=== PATIENT | female | born 1945 | race Caucasian/White ===

== ENCOUNTER 2021-06-27 14:22 | Inpatient (IN) ==
[2021-07-12] MEDS ORDERED: GLUCAGON 1 MG VIAL IM PRN (12:11)
[2021-07-12] MEDS ORDERED: DEXTROSE 50% 25 GM/50 ML VIAL IV PRN (12:11)
[2021-07-12] MEDS ORDERED: CLORAZEPATE 3.75 MG TABLET PO PRN (12:19)
[2021-07-12] MEDS ORDERED: NITROGLYCERIN SL 0.4 MG TABLET SL PRN (12:19)
[2021-07-12] MEDS ORDERED: MORPHINE 2 MG/1 ML SYRINGE IV PRN (12:19)
[2021-07-12] MEDS ORDERED: SODIUM CHLORIDE 0.9% 1,000 ML IV SCH (12:30)
[2021-07-12 15:01] LABS: Basophils % 0.4 % (0.0-0.8); Eosinophils # 0.3 10*3/uL (0.0-0.87); Eosinophils % 3.6 % (0.00-10.9); Hematocrit 35.3 VOL% (35.7-47.0); Immature Granulocytes % 0.6 %; Immature Granulocytes Absolute 0.05 #; Lymphocytes # 2.3 10*3/uL (1.4-4.0); Lymphocytes % 29.2 % (21.3-54.2); Mean Corpuscular HGB Conc 31.2 GM/DL (32-36); Mean Corpuscular Volume 82.7 FL (87-102); Mean Platelet Volume 9.5 FL (9.6-12.0); Monocytes % 5.6 % (1.7-12.7); Neutrophils % 60.6 % (38.7-73.9); Platelet Count 297 T/CUMM (130-400); Red Blood Count 4.27 MC/CUMM (3.8-5.5)
[2021-07-12 15:24] LABS: Albumin 3.4 G/DL (3.4-5.0); Bilirubin,Total 0.4 MG/DL (0.20-1.00); Osmolality,Calculated 276.1 MOS/KG (273-304); Potassium 3.8 MMOL/L (3.5-5.1); Total Protein 7.2 G/DL (6.4-8.2)
[2021-07-12] MEDS: CHLORHEXIDINE 4% SOLN 118 ML BOTTLE TOP SCH ×2 (17:36→21:41)
[2021-07-12 18:08] LABS: ABG Base Excess -1.1 MMOL/L (-2.5-2.5); ABG HCO3 23.5 MMOL/L (20-26); ABG Oxygen Saturation 97.4 % (95-100); ABG PCO2 36.6 MM HG (35-48); ABG PH 7.409 (7.35-7.45); ABG PO2 94.8 MM HG (80-95); ABG TCO2 20.8 MMOL/L (23-27)
[2021-07-12] MEDS: INSULIN REGULAR 100 UNIT/ML SUBCUT SCH ×2 (18:27→21:42)
[2021-07-12] MEDS: CHLORHEXIDINE 0.12% ORAL RINSE 60 ML BOTTLE SWISH/SPIT SCH (22:49)
[2021-07-13] MEDS ORDERED: VANCOMYCIN 1,000 MG VIAL ONE ×2 (04:58→11:53)
[2021-07-13] MEDS ORDERED: PAPAVERINE 60 MG/2 ML VIAL ONE (04:58)
[2021-07-13] MEDS ORDERED: VANCOMYCIN 500 MG VIAL ONE (04:58)
[2021-07-13] MEDS ORDERED: CEFUROXIME INJ 1,500 MG in SODIUM CHLORIDE 0.9% 100 ML IV ONE (05:00)
[2021-07-13] MEDS ORDERED: SODIUM CHLORIDE 0.9% 1,000 ML IV ONE (05:49)
[2021-07-13] MEDS ORDERED: LIDOCAINE 2% 5 ML VIAL ONE ×2 (05:49→10:09)
[2021-07-13] MEDS ORDERED: LACTATED RINGERS 1,000 ML IV ONE (05:49)
[2021-07-13] MEDS ORDERED: VECURONIUM 10 MG VIAL IV ONE ×2 (05:49→12:00)
[2021-07-13] MEDS ORDERED: SEVOFLURANE 1 UNIT/15 MINUTE INH ONE ×3 (05:49→11:12)
[2021-07-13] MEDS ORDERED: ETOMIDATE 40 MG/20 ML VIAL IV ONE (05:49)
[2021-07-13] MEDS ORDERED: AMINOCAPROIC ACID 5,000 MG/20 ML VIAL ONE (05:49)
[2021-07-13] MEDS ORDERED: NITROGLYCERIN DRIP 0 MG/0 ML BOTTLE IV ONE (05:49)
[2021-07-13] MEDS ORDERED: ePHEDrine 50 MG/ML VIAL ONE (05:49)
[2021-07-13] MEDS ORDERED: MINERAL OIL/PETROLATUM OPH OINT 3.5 GM TUBE ONE (05:49)
[2021-07-13] MEDS ORDERED: MIDAZOLAM 10 MG/2 ML VIAL ONE ×5 (05:49→12:00)
[2021-07-13] MEDS ORDERED: CALCIUM CHLORIDE 1,000 MG/10 ML VIAL IV ONE ×2 (05:49→10:28)
[2021-07-13] MEDS ORDERED: SODIUM CHLORIDE 0.9% 250 ML IV ONE (05:49)
[2021-07-13] MEDS ORDERED: HEPARIN/NACL 0.9% 2 UNITS/ML 1,000 UNIT/500 ML BAG IV ONE (05:49)
[2021-07-13] MEDS ORDERED: PHENYLEPHRINE DRIP 20 MG/250 ML PREMIX IV ONE (05:49)
[2021-07-13] MEDS ORDERED: SUFentanil 250 MCG/5 ML AMP ONE (05:50)
[2021-07-13] MEDS ORDERED: FAMOTIDINE 20 MG TABLET PO ONE (06:00)
[2021-07-13] MEDS ORDERED: DIAZEPAM 5 MG TABLET PO ONE (06:00)
[2021-07-13] MEDS ORDERED: SODIUM BICARBONATE 50 MEQ/50 ML VIAL IV ONE ×2 (07:40→10:10)
[2021-07-13] MEDS ORDERED: CALCIUM CHLORIDE 1,000 MG/10 ML SYRINGE IV ONE (07:41)
[2021-07-13] MEDS ORDERED: NITROPRUSSIDE 50 MG/2 ML VIAL ONE (07:41)
[2021-07-13] MEDS ORDERED: PHENYLEPHRINE DRIP 40 MG/250 ML PREMIX IV ONE (07:41)
[2021-07-13 07:54] LABS: ABG Base Excess -0.3 MMOL/L (-2.5-2.5); ABG HCO3 24.2 MMOL/L (20-26); ABG PCO2 42.7 MM HG (35-48); ABG PH 7.374 (7.35-7.45); ABG TCO2 22.8 MMOL/L (23-27); Glucose Heart Surgery 180 MG/DL (74-106); Hematocrit Heart Surgery 29.8 PERCENT (37-47); Hemoglobin Heart Surgery 9.6 G/DL (12.0-16.0); Ionized Calcium Arterial 1.16 MMOL/L (1.21-1.46); PCO2 Patient Temp Arterial 42.7 MMHG; PH Patient Temp Arterial 7.374; Patient Temperature 37 CELCIUS; Potassium Heart/CVR 3.8 MMOL/L (3.5-5.1); Sodium Heart/CVR 142 MMOL/L (135-145)
[2021-07-13 08:00] LABS: Bacteria,Urine Occasional /HPF (Few); Bilirubin,Urine Negative (Negative); Blood, Urine Negative (Negative); Glucose,Urine (UA) Negative (Negative); Ketones,Urine Negative (Negative); Nitrite,Urine Positive (Negative); Protein,Urine Negative; RBC,Urine 4 /HPF (0-4); Urine Appearance Slightly Hazy (Clear); Urine Color Yellow (Yellow); Urine Urobilinogen < 2.0 EU/DL (0.2-1.0)
[2021-07-13] MEDS ORDERED: FAMOTIDINE 20 MG/2 ML VIAL IV ONE (08:24)
[2021-07-13] MEDS ORDERED: diphenhydrAMINE 50 MG/1 ML VIAL ONE (08:24)
[2021-07-13 09:15] LABS: Hematocrit Heart Surgery 19.5 PERCENT (37-47); PCO2 Patient Temp Venous 40.4 MM HG; PH Patient Temp Venous 7.406; PO2 Patient Temp Venous 33.8 MM HG; VBG Base Excess 0.9 MEQ/L (0-4); VBG HCO3 24.9 MEQ/L (24-28); VBG Oxygen Saturation 66.5 %; VBG PCO2 44.5 MMHG (41-51); VBG PH 7.377; VBG PO2 38.8 MMHG (17-40); VBG Total CO2 25.1 MMOL/L
[2021-07-13 09:16] LABS: Hemoglobin Heart Surgery 6.2 G/DL (12.0-16.0)
[2021-07-13 09:52] LABS: Hematocrit Heart Surgery 26.5 PERCENT (37-47); Hemoglobin Heart Surgery 8.5 G/DL (12.0-16.0); PCO2 Patient Temp Venous 42.7 MM HG; PH Patient Temp Venous 7.332; PO2 Patient Temp Venous 32.6 MM HG; VBG HCO3 21.4 MEQ/L (24-28); VBG Oxygen Saturation 65.5 %; VBG PCO2 47.1 MMHG (41-51); VBG PH 7.304; VBG PO2 37.5 MMHG (17-40)
[2021-07-13] MEDS ORDERED: methylPREDNISolone SOD SUC 1,000 MG/8 ML VIAL ONE (10:09)
[2021-07-13] MEDS ORDERED: ALBUMIN 25% 25 GM/100 ML VIAL IV ONE (10:09)
[2021-07-13] MEDS ORDERED: MAGNESIUM SULFATE 5 GM/10 ML VIAL IV ONE (10:09)
[2021-07-13] MEDS ORDERED: HEPARIN 10,000 UNIT/10 ML VIAL ONE (10:10)
[2021-07-13] MEDS ORDERED: FUROSEMIDE 20 MG/2 ML VIAL ONE (10:10)
[2021-07-13] MEDS ORDERED: MANNITOL 100 GM/500 ML BAG IV ONE (10:10)
[2021-07-13] MEDS ORDERED: PROTAMINE SULFATE 250 MG/25 ML VIAL IV ONE (10:10)
[2021-07-13] MEDS ORDERED: DEXTROSE 5% KCL 20 MEQ 20 MEQ/1,000 ML BAG IV ONE (10:10)
[2021-07-13] MEDS ORDERED: PROTAMINE SULFATE 50 MG/5 ML VIAL IV ONE ×2 (10:10→11:12)
[2021-07-13 10:17] LABS: ABG Base Excess 4.1 MMOL/L (-2.5-2.5); ABG HCO3 28.2 MMOL/L (20-26); ABG PCO2 44.4 MM HG (35-48); ABG PH 7.423 (7.35-7.45); ABG TCO2 26.9 MMOL/L (23-27); Glucose Heart Surgery 313 MG/DL (74-106); Hematocrit Heart Surgery 26.2 PERCENT (37-47); Hemoglobin Heart Surgery 8.4 G/DL (12.0-16.0); Ionized Calcium Arterial 1.07 MMOL/L (1.21-1.46); PCO2 Patient Temp Arterial 44.4 MMHG; PH Patient Temp Arterial 7.423; Patient Temperature 37 CELCIUS; Potassium Heart/CVR 3.9 MMOL/L (3.5-5.1); Sodium Heart/CVR 138 MMOL/L (135-145)
[2021-07-13] MEDS ORDERED: AMIODARONE 150 MG/3 ML VIAL ONE (10:18)
[2021-07-13] MEDS ORDERED: VECURONIUM 10 MG VIAL IV PRN ×2 (11:00)
[2021-07-13] MEDS ORDERED: MAGNESIUM SULF RIDER 4 GM/100 ML PREMIX IV PRN (11:00)
[2021-07-13] MEDS ORDERED: ONDANSETRON 4 MG/2 ML VIAL IV PRN (11:00)
[2021-07-13] MEDS ORDERED: INSULIN REGULAR 100 UNIT/ML IV ONE (11:00)
[2021-07-13] MEDS ORDERED: INSULIN REGULAR 100 UNIT/ML IV PRN (11:00)
[2021-07-13] MEDS ORDERED: DEXTROSE 50% 25 GM/50 ML VIAL IV PRN ×2 (11:00)
[2021-07-13] MEDS ORDERED: CALCIUM CHLORIDE 1,000 MG/10 ML SYRINGE IV PRN (11:00)
[2021-07-13] MEDS ORDERED: PHENYLEPHRINE DRIP 40 MG/250 ML PREMIX IV PRN (11:00)
[2021-07-13] MEDS ORDERED: ACETAMINOPHEN 650 MG SUPP RECTAL PRN (11:00)
[2021-07-13] MEDS ORDERED: CHLORHEXIDINE 4% SOLN 118 ML BOTTLE TOP PRN (11:00)
[2021-07-13] MEDS ORDERED: NITROPRUSSIDE 100 MG in DEXTROSE 5% 250 ML IV PRN (11:00)
[2021-07-13] MEDS ORDERED: SODIUM CHLORIDE 0.45% 1,000 ML IV SCH ×2 (11:00)
[2021-07-13] MEDS ORDERED: MIDAZOLAM 10 MG/2 ML VIAL IV PRN (11:00)
[2021-07-13] MEDS ORDERED: INSULIN REGULAR DRIP 100 ML IV SCH (11:00)
[2021-07-13] MEDS ORDERED: MIDAZOLAM 2 MG/2 ML VIAL IV PRN (11:00)
[2021-07-13] MEDS ORDERED: ALBUMIN 5% 12.5 GM/250 ML VIAL IV PRN (11:00)
[2021-07-13] MEDS ORDERED: MAGNESIUM SULF RIDER 2 GM/50 ML PREMIX IV PRN (11:00)
[2021-07-13] MEDS: LACTATED RINGERS 250 ML IV PRN ×7 (11:18→16:44)
[2021-07-13 11:32] LABS: Basophils % 0.3 % (0.0-0.8); Eosinophils # 0.2 10*3/uL (0.0-0.87); Eosinophils % 1.7 % (0.00-10.9); Hematocrit 29.7 VOL% (35.7-47.0); Hemoglobin 9.4 GM/DL (12.0-16.0); Immature Granulocytes % 0.9 %; Immature Granulocytes Absolute 0.09 #; Lymphocytes # 2.5 10*3/uL (1.4-4.0); Lymphocytes % 24.1 % (21.3-54.2); Mean Corpuscular HGB Conc 31.6 GM/DL (32-36); Mean Corpuscular Volume 83.7 FL (87-102); Mean Platelet Volume 9.7 FL (9.6-12.0); Monocytes % 4.9 % (1.7-12.7); Neutrophils % 68.1 % (38.7-73.9); Platelet Count 196 T/CUMM (130-400); Red Blood Count 3.55 MC/CUMM (3.8-5.5); Red Cell Distribution Width 15.2 % (9.3-17.3); White Blood Count 10.3 T/CUMM (4-12)
[2021-07-13 11:33] LABS: ABG Base Excess 3.8 MMOL/L (-2.5-2.5); ABG HCO3 27.8 MMOL/L (20-26); ABG Oxygen Saturation 99.8 % (95-100); ABG PCO2 37.6 MM HG (35-48); ABG PH 7.472 (7.35-7.45); Glucose Heart Surgery 289 MG/DL (74-106); Hematocrit Heart Surgery 29.7 PERCENT (37-47); Hemoglobin Heart Surgery 9.6 G/DL (12.0-16.0); Potassium Heart/CVR 4.1 MMOL/L (3.5-5.1)
[2021-07-13 11:41] LABS: INR 1.2; PT Patient Result 13.3 SECS (10.5-12.0)
[2021-07-13] MEDS ORDERED: THROMBIN TOPICAL (RECOMBINANT) 5,000 UNIT VIAL TOP ONE (12:39)
[2021-07-13 12:45] LABS: ABG Base Excess 0.4 MMOL/L (-2.5-2.5); ABG HCO3 24.8 MMOL/L (20-26); ABG PCO2 39.5 MM HG (35-48); ABG PH 7.409 (7.35-7.45); ABG TCO2 22.3 MMOL/L (23-27); Glucose Heart Surgery 305 MG/DL (74-106); Hematocrit Heart Surgery 34.4 PERCENT (37-47); Hemoglobin Heart Surgery 11.1 G/DL (12.0-16.0); Ionized Calcium Arterial 1.19 MMOL/L (1.21-1.46); PCO2 Patient Temp Arterial 39.5 MMHG; PH Patient Temp Arterial 7.409; Patient Temperature 37 CELCIUS; Potassium Heart/CVR 3.6 MMOL/L (3.5-5.1); Sodium Heart/CVR 142 MMOL/L (135-145)
[2021-07-13 12:46] LABS: CKMB % 4.9 %
[2021-07-13 12:49] LABS: High Sensitive Troponin I* 1953.6 ng/L (0-54)
[2021-07-13] MEDS: CHLORHEXIDINE 4% SOLN 118 ML BOTTLE TOP SCH (13:00)
[2021-07-13] MEDS ORDERED: SODIUM CHLORIDE 0.9% 100 ML IV ONE (13:03)
[2021-07-13] MEDS: INSULIN REGULAR 100 UNIT/ML SUBCUT SCH (13:09)
[2021-07-13] MEDS: CHLORHEXIDINE 0.12% ORAL RINSE 60 ML BOTTLE SWISH/SPIT SCH (13:10)
[2021-07-13 13:16] LABS: Albumin 3.3 G/DL (3.4-5.0); Bilirubin,Total 1.1 MG/DL (0.20-1.00); Calcium 9.8 MG/DL (8.5-10.1); Osmolality,Calculated 287.5 MOS/KG (273-304); Potassium 4.1 MMOL/L (3.5-5.1); Total Protein 6.4 G/DL (6.4-8.2)
[2021-07-13 14:32] LABS: ABG Base Excess 1.7 MMOL/L (-2.5-2.5); ABG HCO3 25.9 MMOL/L (20-26); ABG Oxygen Saturation 99.2 % (95-100); ABG PCO2 36.5 MM HG (35-48); ABG PH 7.452 (7.35-7.45); ABG TCO2 22.8 MMOL/L (23-27); Glucose Heart Surgery 271 MG/DL (74-106); Hematocrit Heart Surgery 33.1 PERCENT (37-47); Hemoglobin Heart Surgery 10.7 G/DL (12.0-16.0); Potassium Heart/CVR 3.4 MMOL/L (3.5-5.1)
[2021-07-13] MEDS: POTASSIUM CHLORIDE RIDER 20 MEQ/100 ML PREMIX IV PRN ×3 (14:42→17:23)
[2021-07-13] MEDS ORDERED: MORPHINE 2 MG/1 ML SYRINGE ONE (15:52)
[2021-07-13] MEDS: MORPHINE 10 MG/1 ML VIAL IV PRN ×2 (15:57→19:25)
[2021-07-13 17:17] LABS: ABG Base Excess 0.1 MMOL/L (-2.5-2.5); ABG HCO3 24.5 MMOL/L (20-26); ABG Oxygen Saturation 97.4 % (95-100); ABG PCO2 42.4 MM HG (35-48); ABG PH 7.383 (7.35-7.45); ABG PO2 95.7 MM HG (80-95); Glucose Heart Surgery 215 MG/DL (74-106); Hematocrit Heart Surgery 31.6 PERCENT (37-47); Hemoglobin Heart Surgery 10.2 G/DL (12.0-16.0); Potassium Heart/CVR 3.8 MMOL/L (3.5-5.1)
[2021-07-13] MEDS: POTASSIUM CHLORIDE RIDER 10 MEQ/100 ML PREMIX IV PRN (17:54)
[2021-07-13] MEDS: CEFUROXIME INJ 1,500 MG in SODIUM CHLORIDE 0.9% 100 ML IV SCH (17:56)
[2021-07-13 18:35] LABS: ABG Base Excess -0.3 MMOL/L (-2.5-2.5); ABG HCO3 24.2 MMOL/L (20-26); ABG PCO2 39.9 MM HG (35-48); ABG PH 7.396 (7.35-7.45); ABG PO2 90.3 MM HG (80-95); ABG TCO2 22.2 MMOL/L (23-27); Glucose Heart Surgery 182 MG/DL (74-106); Hematocrit Heart Surgery 31.8 PERCENT (37-47); Hemoglobin Heart Surgery 10.3 G/DL (12.0-16.0); Potassium Heart/CVR 4.3 MMOL/L (3.5-5.1)
[2021-07-13 19:21] LABS: High Sensitive Troponin I* 2357.8 ng/L (0-54)
[2021-07-13 20:25] LABS: ABG Base Excess 0.7 MMOL/L (-2.5-2.5); ABG HCO3 25.1 MMOL/L (20-26); ABG PCO2 41.3 MM HG (35-48); ABG PO2 89.6 MM HG (80-95); Glucose Heart Surgery 145 MG/DL (74-106); Hematocrit Heart Surgery 33.3 PERCENT (37-47); Hemoglobin Heart Surgery 10.8 G/DL (12.0-16.0)
[2021-07-13] MEDS ORDERED: CHLORHEXIDINE 0.12% ORAL RINSE 60 ML BOTTLE SWISH/SPIT SCH (21:00)
[2021-07-13] MEDS ORDERED: FUROSEMIDE 40 MG/4 ML VIAL IV ONE (22:09)
[2021-07-13 22:12] LABS: ABG Base Excess 1.7 MMOL/L (-2.5-2.5); ABG HCO3 25.9 MMOL/L (20-26); ABG Oxygen Saturation 97.3 % (95-100); ABG PCO2 41.3 MM HG (35-48); ABG PH 7.413 (7.35-7.45); ABG PO2 92.8 MM HG (80-95); ABG TCO2 23.9 MMOL/L (23-27); Glucose Heart Surgery 135 MG/DL (74-106); Hematocrit Heart Surgery 31.6 PERCENT (37-47); Hemoglobin Heart Surgery 10.2 G/DL (12.0-16.0)
[2021-07-13 23:47] LABS: ABG Base Excess 2.1 MMOL/L (-2.5-2.5); ABG HCO3 26.2 MMOL/L (20-26); ABG Oxygen Saturation 96.1 % (95-100); ABG PCO2 40.9 MM HG (35-48); ABG PH 7.422 (7.35-7.45); ABG PO2 80.5 MM HG (80-95); ABG TCO2 24.1 MMOL/L (23-27); Glucose Heart Surgery 143 MG/DL (74-106); Hematocrit Heart Surgery 31.7 PERCENT (37-47); Hemoglobin Heart Surgery 10.2 G/DL (12.0-16.0); Potassium Heart/CVR 3.8 MMOL/L (3.5-5.1)
[2021-07-14] MEDS: POTASSIUM CHLORIDE RIDER 20 MEQ/100 ML PREMIX IV PRN
[2021-07-14] MEDS: POTASSIUM CHLORIDE RIDER 10 MEQ/100 ML PREMIX IV PRN (00:31)
[2021-07-14 01:30] LABS: ABG Base Excess 1.2 MMOL/L (-2.5-2.5); ABG HCO3 25.5 MMOL/L (20-26); ABG Oxygen Saturation 97.1 % (95-100); ABG PCO2 40.2 MM HG (35-48); ABG PH 7.415 (7.35-7.45); ABG PO2 89.6 MM HG (80-95); ABG TCO2 23.4 MMOL/L (23-27); Glucose Heart Surgery 139 MG/DL (74-106); Hematocrit Heart Surgery 31.2 PERCENT (37-47); Hemoglobin Heart Surgery 10.1 G/DL (12.0-16.0); Potassium Heart/CVR 4.6 MMOL/L (3.5-5.1)
[2021-07-14] MEDS: MORPHINE 10 MG/1 ML VIAL IV PRN ×2 (02:03→07:00)
[2021-07-14 02:16] LABS: ABG Base Excess 1.1 MMOL/L (-2.5-2.5); ABG HCO3 25.3 MMOL/L (20-26); ABG Oxygen Saturation 95.8 % (95-100); ABG PCO2 43.3 MM HG (35-48); ABG PO2 81.2 MM HG (80-95); ABG TCO2 23.9 MMOL/L (23-27); Glucose Heart Surgery 148 MG/DL (74-106); Potassium Heart/CVR 4.4 MMOL/L (3.5-5.1)
[2021-07-14 03:49] LABS: ABG Base Excess 2.2 MMOL/L (-2.5-2.5); ABG HCO3 26.8 MMOL/L (20-26); ABG Oxygen Saturation 94.5 % (95-100); ABG PCO2 42.1 MM HG (35-48); ABG PH 7.422 (7.35-7.45); ABG PO2 75.6 MM HG (80-95); ABG TCO2 28.1 MMOL/L (23-27); Glucose Heart Surgery 130 MG/DL (74-106); Hemoglobin Heart Surgery 10.1 G/DL (12.0-16.0); Potassium Heart/CVR 4.3 MMOL/L (3.5-5.1)
[2021-07-14 03:52] LABS: Hematocrit 29.1 VOL% (35.7-47.0); Hemoglobin 9.5 GM/DL (12.0-16.0); Immature Granulocytes % 0.6 %; Immature Granulocytes Absolute 0.07 #; Lymphocytes % 8.1 % (21.3-54.2); Mean Corpuscular HGB Conc 32.6 GM/DL (32-36); Mean Corpuscular Volume 84.8 FL (87-102); Monocytes % 4.1 % (1.7-12.7); Neutrophils % 87.2 % (38.7-73.9); Platelet Count 182 T/CUMM (130-400); Red Blood Count 3.43 MC/CUMM (3.8-5.5); Red Cell Distribution Width 15.9 % (9.3-17.3); White Blood Count 12.4 T/CUMM (4-12)
[2021-07-14 04:12] LABS: CKMB % 2.4 %
[2021-07-14 04:15] LABS: High Sensitive Troponin I* 1843.4 ng/L (0-54)
[2021-07-14 04:16] LABS: Albumin 3.2 G/DL (3.4-5.0); Bilirubin,Direct 0.22 MG/DL (0.0-0.20); Bilirubin,Total 0.5 MG/DL (0.20-1.00); Calcium 7.8 MG/DL (8.5-10.1); Potassium 4.4 MMOL/L (3.5-5.1); Total Protein 5.8 G/DL (6.4-8.2)
[2021-07-14] MEDS: CEFUROXIME INJ 1,500 MG in SODIUM CHLORIDE 0.9% 100 ML IV SCH ×2 (06:18→20:53)
[2021-07-14] MEDS ORDERED: INSULIN REGULAR 100 UNIT/ML SUBCUT SCH (07:30)
[2021-07-14] MEDS ORDERED: ACETAMINOPHEN 325 MG TABLET PO PRN (08:09)
[2021-07-14] MEDS ORDERED: GLUCAGON 1 MG VIAL IM PRN (08:09)
[2021-07-14] MEDS ORDERED: MAGNESIUM HYDROXIDE SUSP 30 ML UDCUP PO PRN (08:09)
[2021-07-14] MEDS ORDERED: ONDANSETRON 4 MG/2 ML VIAL IV PRN (08:09)
[2021-07-14] MEDS ORDERED: ALUMINUM/MAGNES/SIMETH MAX STR 30 ML UDCUP PO PRN (08:09)
[2021-07-14] MEDS ORDERED: MAGNESIUM SULF RIDER 2 GM/50 ML PREMIX IV PRN (08:09)
[2021-07-14] MEDS ORDERED: ZALEPLON 5 MG CAPSULE PO PRN (08:09)
[2021-07-14] MEDS ORDERED: POTASSIUM CHLORIDE 20 MEQ TABLET PO PRN (08:09)
[2021-07-14] MEDS ORDERED: KETOROLAC 30 MG/1 ML VIAL IV PRN (08:09)
[2021-07-14] MEDS ORDERED: MAGNESIUM SULF RIDER 4 GM/100 ML PREMIX IV PRN (08:09)
[2021-07-14] MEDS ORDERED: DEXTROSE 50% 25 GM/50 ML VIAL IV PRN (08:09)
[2021-07-14] MEDS: hydroCHLOROthiazide 12.5 MG CAPSULE PO SCH (08:21)
[2021-07-14] MEDS: ASPIRIN EC 325 MG TABLET PO SCH (08:21)
[2021-07-14] MEDS: BISOPROLOL 5 MG TABLET PO SCH ×2 (08:22→20:57)
[2021-07-14] MEDS: ASCORBIC ACID 500 MG TABLET PO SCH ×2 (08:22→20:53)
[2021-07-14] MEDS: CYANOCOBALAMIN 500 MCG TABLET PO SCH (08:22)
[2021-07-14] MEDS: MAGNESIUM OXIDE 400 MG TABLET PO SCH ×2 (08:22→20:53)
[2021-07-14] MEDS: FERROUS SULFATE 325 MG TABLET PO SCH (08:23)
[2021-07-14] MEDS: CHLORHEXIDINE 0.12% ORAL RINSE 60 ML BOTTLE SWISH/SPIT SCH ×2 (08:23→20:53)
[2021-07-14] MEDS: DOCUSATE SODIUM 100 MG CAPSULE PO SCH (08:23)
[2021-07-14] MEDS ORDERED: PANTOPRAZOLE 40 MG TABLET PO SCH (09:00)
[2021-07-14] MEDS: oxyCODONE/ACETAMINOPHEN 5-325 MG TABLET PO PRN ×3 (09:29→20:54)
[2021-07-14] MEDS: SODIUM CHLOR 0.45% KCL 20 MEQ 20 MEQ/1,000 ML BAG IV SCH (09:38)
[2021-07-14] MEDS: LEVOFLOXACIN 500 MG TABLET PO SCH (15:47)
[2021-07-14] MEDS: FAMOTIDINE 20 MG TABLET PO SCH (20:52)
[2021-07-14] MEDS: CHOLECALCIFEROL 1,000 UNIT TABLET PO SCH (20:52)
[2021-07-14] MEDS: CALCIUM (CARBONATE) 500 MG TABLET PO SCH (20:53)
[2021-07-14] MEDS: EZETIMIBE 10 MG TABLET PO SCH (20:53)
[2021-07-14] MEDS: ATORVASTATIN 80 MG TABLET PO SCH (20:53)
[2021-07-14] MEDS: CETIRIZINE 10 MG TABLET PO SCH (20:53)
[2021-07-14] MEDS: TAMOXIFEN 10 MG TABLET PO SCH (21:52)
[2021-07-15 04:36] LABS: Basophils % 0.1 % (0.0-0.8); Eosinophils % 0.1 % (0.00-10.9); Hematocrit 28.4 VOL% (35.7-47.0); Hemoglobin 9.3 GM/DL (12.0-16.0); Immature Granulocytes % 0.5 %; Immature Granulocytes Absolute 0.07 #; Lymphocytes # 2.3 10*3/uL (1.4-4.0); Lymphocytes % 16.9 % (21.3-54.2); Mean Corpuscular HGB Conc 32.7 GM/DL (32-36); Mean Corpuscular Volume 86.3 FL (87-102); Mean Platelet Volume 10.1 FL (9.6-12.0); Monocytes % 5.9 % (1.7-12.7); Neutrophils % 76.5 % (38.7-73.9); Platelet Count 191 T/CUMM (130-400); Red Blood Count 3.29 MC/CUMM (3.8-5.5); Red Cell Distribution Width 16.5 % (9.3-17.3); White Blood Count 13.5 T/CUMM (4-12)
[2021-07-15 05:03] LABS: Albumin 2.9 G/DL (3.4-5.0); Bilirubin,Direct 0.16 MG/DL (0.0-0.20); Bilirubin,Total 0.5 MG/DL (0.20-1.00); Osmolality,Calculated 272.1 MOS/KG (273-304); Potassium 4.4 MMOL/L (3.5-5.1); Total Protein 5.6 G/DL (6.4-8.2)
[2021-07-15 05:09] LABS: Alanine Aminotransferase 22 U/L (13-56); Albumin 2.8 G/DL (3.4-5.0); Alkaline Phosphatase 41 U/L (45-117); Aspartate Amino Transferase 41 U/L (0-37); Bilirubin,Indirect 1.2 MG/DL (0.0-1.0)
[2021-07-15] MEDS ORDERED: FUROSEMIDE 40 MG/4 ML VIAL IV ONE (06:00)
[2021-07-15] MEDS: hydroCHLOROthiazide 12.5 MG CAPSULE PO SCH (08:01)
[2021-07-15] MEDS: MAGNESIUM OXIDE 400 MG TABLET PO SCH ×2 (08:01→20:32)
[2021-07-15] MEDS: ASCORBIC ACID 500 MG TABLET PO SCH ×2 (08:01→20:33)
[2021-07-15] MEDS: BISOPROLOL 5 MG TABLET PO SCH ×2 (08:01→20:32)
[2021-07-15] MEDS: ASPIRIN EC 325 MG TABLET PO SCH (08:01)
[2021-07-15] MEDS: DOCUSATE SODIUM 100 MG CAPSULE PO SCH ×2 (08:01→11:27)
[2021-07-15] MEDS: FERROUS SULFATE 325 MG TABLET PO SCH (08:02)
[2021-07-15] MEDS: LEVOFLOXACIN 500 MG TABLET PO SCH (08:02)
[2021-07-15] MEDS: CHLORHEXIDINE 0.12% ORAL RINSE 60 ML BOTTLE SWISH/SPIT SCH ×2 (08:02→20:32)
[2021-07-15] MEDS: CYANOCOBALAMIN 500 MCG TABLET PO SCH (08:02)
[2021-07-15] MEDS: SODIUM CHLOR 0.45% KCL 20 MEQ 20 MEQ/1,000 ML BAG IV SCH (11:20)
[2021-07-15] MEDS: oxyCODONE/ACETAMINOPHEN 5-325 MG TABLET PO PRN ×2 (15:36→21:57)
[2021-07-15] MEDS: TAMOXIFEN 10 MG TABLET PO SCH (20:32)
[2021-07-15] MEDS: CHOLECALCIFEROL 1,000 UNIT TABLET PO SCH (20:32)
[2021-07-15] MEDS: CETIRIZINE 10 MG TABLET PO SCH (20:33)
[2021-07-15] MEDS: FAMOTIDINE 20 MG TABLET PO SCH (20:33)
[2021-07-15] MEDS: EZETIMIBE 10 MG TABLET PO SCH (20:33)
[2021-07-15] MEDS: CALCIUM (CARBONATE) 500 MG TABLET PO SCH (20:33)
[2021-07-15] MEDS: ATORVASTATIN 80 MG TABLET PO SCH (20:33)
[2021-07-16 06:18] LABS: Albumin 2.7 G/DL (3.4-5.0); Bilirubin,Direct 0.16 MG/DL (0.0-0.20); Bilirubin,Total 0.6 MG/DL (0.20-1.00); Calcium 8.7 MG/DL (8.5-10.1); Potassium 3.7 MMOL/L (3.5-5.1)
[2021-07-16 06:21] LABS: Alanine Aminotransferase 27 U/L (13-56); Albumin 2.6 G/DL (3.4-5.0); Aspartate Amino Transferase 38 U/L (0-37); Bilirubin,Indirect 0.7 MG/DL (0.0-1.0); Total Protein 5.9 G/DL (6.4-8.2)
[2021-07-16 06:24] LABS: Alkaline Phosphatase 46 U/L (45-117)
[2021-07-16 06:33] LABS: Basophils % 0.2 % (0.0-0.8); Eosinophils # 0.3 10*3/uL (0.0-0.87); Eosinophils % 2.8 % (0.00-10.9); Hematocrit 28.6 VOL% (35.7-47.0); Immature Granulocytes % 0.5 %; Immature Granulocytes Absolute 0.05 #; Lymphocytes # 2.2 10*3/uL (1.4-4.0); Lymphocytes % 22.6 % (21.3-54.2); Mean Corpuscular HGB Conc 31.5 GM/DL (32-36); Mean Corpuscular Volume 87.5 FL (87-102); Mean Platelet Volume 10.7 FL (9.6-12.0); Monocytes % 5.1 % (1.7-12.7); Neutrophils % 68.8 % (38.7-73.9); Platelet Count 194 T/CUMM (130-400); Red Blood Count 3.27 MC/CUMM (3.8-5.5); Red Cell Distribution Width 16.5 % (9.3-17.3); White Blood Count 9.8 T/CUMM (4-12)
[2021-07-16] MEDS ORDERED: POTASSIUM CHLORIDE 20 MEQ TABLET PO ONE (06:41)
[2021-07-16] MEDS: oxyCODONE/ACETAMINOPHEN 5-325 MG TABLET PO PRN ×3 (06:59→21:46)
[2021-07-16] MEDS: POLYETHYLENE GLYCOL POWDER 17 GM PACK PO SCH (08:53)
[2021-07-16] MEDS: ASCORBIC ACID 500 MG TABLET PO SCH ×2 (08:54→21:39)
[2021-07-16] MEDS: ASPIRIN EC 325 MG TABLET PO SCH (08:54)
[2021-07-16] MEDS: DOCUSATE SODIUM 100 MG CAPSULE PO SCH (08:54)
[2021-07-16] MEDS: MAGNESIUM OXIDE 400 MG TABLET PO SCH ×2 (08:54→21:38)
[2021-07-16] MEDS: FERROUS SULFATE 325 MG TABLET PO SCH (08:54)
[2021-07-16] MEDS: hydroCHLOROthiazide 12.5 MG CAPSULE PO SCH (08:54)
[2021-07-16] MEDS: CHLORHEXIDINE 0.12% ORAL RINSE 60 ML BOTTLE SWISH/SPIT SCH ×2 (08:55→21:40)
[2021-07-16] MEDS: CYANOCOBALAMIN 500 MCG TABLET PO SCH (08:55)
[2021-07-16] MEDS: LEVOFLOXACIN 500 MG TABLET PO SCH (08:55)
[2021-07-16] MEDS: BISOPROLOL 5 MG TABLET PO SCH ×2 (08:56→21:39)
[2021-07-16] MEDS: CHOLECALCIFEROL 1,000 UNIT TABLET PO SCH (21:37)
[2021-07-16] MEDS: TAMOXIFEN 10 MG TABLET PO SCH (21:38)
[2021-07-16] MEDS: EZETIMIBE 10 MG TABLET PO SCH (21:38)
[2021-07-16] MEDS: CETIRIZINE 10 MG TABLET PO SCH (21:39)
[2021-07-16] MEDS: ATORVASTATIN 80 MG TABLET PO SCH (21:39)
[2021-07-16] MEDS: CALCIUM (CARBONATE) 500 MG TABLET PO SCH (21:40)
[2021-07-16] MEDS: FAMOTIDINE 20 MG TABLET PO SCH (21:40)
[2021-07-17 05:07] LABS: Basophils % 0.3 % (0.0-0.8); Eosinophils # 0.4 10*3/uL (0.0-0.87); Eosinophils % 4.6 % (0.00-10.9); Hematocrit 28.3 VOL% (35.7-47.0); Hemoglobin 8.9 GM/DL (12.0-16.0); Immature Granulocytes % 0.9 %; Immature Granulocytes Absolute 0.07 #; Lymphocytes % 25.4 % (21.3-54.2); Mean Corpuscular HGB Conc 31.4 GM/DL (32-36); Mean Corpuscular Volume 89.3 FL (87-102); Mean Platelet Volume 9.8 FL (9.6-12.0); Neutrophils % 62.8 % (38.7-73.9); Platelet Count 204 T/CUMM (130-400); Red Blood Count 3.17 MC/CUMM (3.8-5.5); Red Cell Distribution Width 16.2 % (9.3-17.3); White Blood Count 7.9 T/CUMM (4-12)
[2021-07-17 05:27] LABS: Calcium 8.3 MG/DL (8.5-10.1); Osmolality,Calculated 277.7 MOS/KG (273-304); Potassium 3.6 MMOL/L (3.5-5.1)
[2021-07-17] MEDS ORDERED: POTASSIUM CHLORIDE 20 MEQ TABLET PO ONE (06:58)
[2021-07-17] MEDS: POLYETHYLENE GLYCOL POWDER 17 GM PACK PO SCH ×2 (08:49→08:52)
[2021-07-17] MEDS: MAGNESIUM OXIDE 400 MG TABLET PO SCH ×2 (08:50→22:18)
[2021-07-17] MEDS: LEVOFLOXACIN 500 MG TABLET PO SCH (08:50)
[2021-07-17] MEDS: BISOPROLOL 5 MG TABLET PO SCH ×2 (08:50→22:18)
[2021-07-17] MEDS: ASPIRIN EC 325 MG TABLET PO SCH (08:50)
[2021-07-17] MEDS: ASCORBIC ACID 500 MG TABLET PO SCH ×2 (08:51→22:17)
[2021-07-17] MEDS: hydroCHLOROthiazide 12.5 MG CAPSULE PO SCH (08:51)
[2021-07-17] MEDS: DOCUSATE SODIUM 100 MG CAPSULE PO SCH (08:51)
[2021-07-17] MEDS: CHLORHEXIDINE 0.12% ORAL RINSE 60 ML BOTTLE SWISH/SPIT SCH ×2 (08:51→22:21)
[2021-07-17] MEDS: FERROUS SULFATE 325 MG TABLET PO SCH (08:51)
[2021-07-17] MEDS: CYANOCOBALAMIN 500 MCG TABLET PO SCH (08:51)
[2021-07-17] MEDS: oxyCODONE/ACETAMINOPHEN 5-325 MG TABLET PO PRN ×2 (10:36→22:21)
[2021-07-17] MEDS: FLUTICASONE 50 MCG NASAL SPRAY 16 GM BOTTLE BOTH NARES SCH (12:57)
[2021-07-17] MEDS: ATORVASTATIN 80 MG TABLET PO SCH (22:17)
[2021-07-17] MEDS: TAMOXIFEN 10 MG TABLET PO SCH (22:17)
[2021-07-17] MEDS: FAMOTIDINE 20 MG TABLET PO SCH (22:18)
[2021-07-17] MEDS: CHOLECALCIFEROL 1,000 UNIT TABLET PO SCH (22:19)
[2021-07-17] MEDS: CALCIUM (CARBONATE) 500 MG TABLET PO SCH (22:19)
[2021-07-17] MEDS: CETIRIZINE 10 MG TABLET PO SCH (22:20)
[2021-07-17] MEDS: EZETIMIBE 10 MG TABLET PO SCH (22:20)
[2021-07-18 05:56] LABS: Basophils % 0.4 % (0.0-0.8); Eosinophils # 0.5 10*3/uL (0.0-0.87); Eosinophils % 6.6 % (0.00-10.9); Hematocrit 27.9 VOL% (35.7-47.0); Hemoglobin 8.7 GM/DL (12.0-16.0); Immature Granulocytes % 1.6 %; Immature Granulocytes Absolute 0.12 #; Lymphocytes # 2.1 10*3/uL (1.4-4.0); Lymphocytes % 28.3 % (21.3-54.2); Mean Corpuscular HGB Conc 31.2 GM/DL (32-36); Mean Platelet Volume 9.9 FL (9.6-12.0); Monocytes % 6.6 % (1.7-12.7); Neutrophils % 56.5 % (38.7-73.9); Platelet Count 221 T/CUMM (130-400); Red Cell Distribution Width 16.3 % (9.3-17.3); White Blood Count 7.3 T/CUMM (4-12)
[2021-07-18 06:12] LABS: Calcium 8.7 MG/DL (8.5-10.1); Osmolality,Calculated 285.1 MOS/KG (273-304)
[2021-07-18 06:19] LABS: Alanine Aminotransferase 29 U/L (13-56); Albumin 2.4 G/DL (3.4-5.0); Alkaline Phosphatase 62 U/L (45-117); Aspartate Amino Transferase 33 U/L (0-37); Bilirubin,Indirect 0.5 MG/DL (0.0-1.0); Blood Urea Nitrogen 12 MG/DL (7-18); Calcium 8.6 MG/DL (8.5-10.1); Carbon Dioxide 28 MMOL/L (21-32); Estimated Glom Filtration Rate 92 ML/MIN; Glucose 154 MG/DL (74-106); Osmolality,Calculated 279.5 MOS/KG (273-304); Potassium 3.8 MMOL/L (3.5-5.1); Sodium 139 MMOL/L (136-145); Total Protein 5.9 G/DL (6.4-8.2)
[2021-07-18] MEDS ORDERED: NON-FORMULARY MEDICATION (Alendronate 70 MG tablet) PO SCH (07:41)
[2021-07-18] MEDS: ASPIRIN EC 325 MG TABLET PO SCH (08:32)
[2021-07-18] MEDS: hydroCHLOROthiazide 12.5 MG CAPSULE PO SCH (08:32)
[2021-07-18] MEDS: MAGNESIUM OXIDE 400 MG TABLET PO SCH (08:32)
[2021-07-18] MEDS: BISOPROLOL 5 MG TABLET PO SCH (08:33)
[2021-07-18] MEDS: ASCORBIC ACID 500 MG TABLET PO SCH (08:33)
[2021-07-18] MEDS: CYANOCOBALAMIN 500 MCG TABLET PO SCH (08:33)
[2021-07-18] MEDS: FERROUS SULFATE 325 MG TABLET PO SCH (08:34)
[2021-07-18] MEDS: LEVOFLOXACIN 500 MG TABLET PO SCH (08:34)
[2021-07-18] MEDS: FLUTICASONE 50 MCG NASAL SPRAY 16 GM BOTTLE BOTH NARES SCH (08:36)
[2021-07-18] MEDS: CHLORHEXIDINE 0.12% ORAL RINSE 60 ML BOTTLE SWISH/SPIT SCH (08:36)
[2021-07-18] MEDS: DOCUSATE SODIUM 100 MG CAPSULE PO SCH (08:38)
[2021-07-18] MEDS: POLYETHYLENE GLYCOL POWDER 17 GM PACK PO SCH (08:39)
[2021-07-18 13:04] VITALS: BP 113/88
== END 2021-07-18 12:45 | disposition home health service (06) | DRG 236 ==
LOC: N.4E 07-12 14:20 → N.CVR 07-13 10:37 → N.ICU 07-14 15:03 → N.TELES 07-15 11:55